=== PATIENT | male | born 1985 | race Two or more races ===

== ENCOUNTER 2016-11-06 17:50 | Emergency (ER) | payer OTHER ==
[2016-11-06 18:07] VITALS: BP 140/96
[2016-11-06] MEDS ORDERED: PREDNISONE 20 MG TABLET PO ONE (19:32)
[2016-11-06] MEDS ORDERED: FAMOTIDINE 20 MG TABLET PO ONE (19:32)
[2016-11-06] MEDS ORDERED: DIPHENHYDRAMINE HCL 50 MG CAPSULE PO ONE (19:32)
--- NOTE | 2016-11-06 19:34 | ER Document Report ---
ED Medical Screen (RME) - General Mode of Arrival: Ambulatory Information source: Patient TRAVEL OUTSIDE OF THE [place] IN LAST 30 DAYS: No - HPI Patient complains to provider of: Abdominal swelling and rash Onset: Other - 1.5 weeks ago Associated Symptoms: Other - see notes above <ABUNDIO HUA - Last Filed: 11/06/16 20:04> <OJSE FLOYD - Last Filed: 11/06/16 20:17> - General Chief Complaint: Abdominal Pain Stated Complaint: ABDOMINAL PAIN Notes: 31 year old male presents to the ED complaining of abdominal swelling and rash which wraps around the lower abdomen and back that started 1.5 weeks ago. Patient reports that the rash is itchy and that he is experiencing increased abdominal pressure. Patient denies wearing anything around his waist or changes in anything that he sleeps on. Patient reports constipation, but denies being on any pain medications recently. Patient has used clobetasol and benadryl to no relief. Patient's primary care provider has prescribed the patient Cipro, but has not started it yet. (ABUNDIO HUA) - Related Data Allergies/Adverse Reactions: No Known Allergies Allergy (Verified 11/06/16 18:04) Home Medications: Current Home Medications Ciprofloxacin HCl [Cipro 500 mg Tablet] 500 mg PO BID 11/06/16 [History] Dextroamphetamine/Amphetamine [Adderall 20 mg Tablet] 1 tab PO DAILY 11/06/16 [ History] Past Medical History - General Information source: Patient Renal/ Medical History: Denies: Hx Peritoneal Dialysis Past Surgical History: Reports: Hx Abdominal Surgery - hernia, Hx Orthopedic Surgery - shoulder, Hx Tonsillectomy - Immunizations Hx Diphtheria, Pertussis, Tetanus Vaccination: Yes <ABUNDIO HUA - Last Filed: 11/06/16 20:04> Review of Systems - Review of Systems Constitutional: No symptoms reported EENT: No symptoms reported Cardiovascular: No symptoms reported Respiratory: No symptoms reported Gastrointestinal: See HPI, Constipation, Other - abdominal swelling Genitourinary: No symptoms reported Male Genitourinary: No symptoms reported Musculoskeletal: No symptoms reported Skin: See HPI, Rash - around lower abdomen and back Hematologic/Lymphatic: No symptoms reported Neurological/Psychological: No symptoms reported -: Yes All other systems reviewed and negative <ABUNDIO HUA - Last Filed: 11/06/16 20:04> Physical Exam - General General appearance: Alert In distress: None - Respiratory Respiratory status: No respiratory distress - Abdominal Inspection: No: Normal - see skin exam below - Extremities General upper extremity: No: Normal inspection - see skin exam below General lower extremity: No: Normal inspection - see skin exam below - Skin Skin Temperature: Warm Skin Moisture: Dry Skin Color: Other - see below Skin irregularity: Rash - Non-dermatomal rash over sides, chest, hands, and leg. <ABUNDIO HUA - Last Filed: 11/06/16 20:04> Course - Laboratory Result Diagrams: 11/06/16 19:47 11/06/16 19:47 <ABUNDIO HUA - Last Filed: 11/06/16 20:04> - Laboratory Result Diagrams: 11/06/16 19:47 11/06/16 19:47 <JOSE FLOYD - Last Filed: 11/06/16 20:17> - Re-evaluation Re-evalutation: 11/06/16 20:16 I personally performed the services described in the documentation, reviewed and edited the documentation which was dictated to the scribe in my presence, and it accurately records my words and actions. (JOSE FLOYD) - Vital Signs Vital signs: Temp Pulse Resp BP Pulse Ox 98.5 F 98 16 140/96 H 98 11/06/16 18:05 11/06/16 18:05 11/06/16 18:05 11/06/16 18:05 11/06/16 18:05 - Laboratory Laboratory results interpreted by me: 11/06/16 19:47 WBC 11.9 H Absolute Eosinophils 0.7 H Scribe Documentation - Scribe Written by Scribe:: Joseph Alberts, 11/06/20162011 acting as scribe for :: Chi <ABUNDIO HUA - Last Filed: 11/06/16 20:04>
[2016-11-06 20:03] LABS: ABSOLUTE BASOPHILS # (AUTO) 0.1 10^3/uL (0.0-0.2); ABSOLUTE EOSINOPHILS # (AUTO) 0.7 10^3/uL (0.0-0.6); ABSOLUTE LYMPHOCYTES (AUTO) 2.6 10^3/uL (0.5-4.7); ABSOLUTE MONOCYTES (AUTO) 0.9 10^3/uL (0.1-1.4); ABSOLUTE NEUT (AUTO) 7.7 10^3/uL (1.7-8.2); BASOPHILS % (AUTO) 0.5 % (0-2); EOSINOPHILS % (AUTO) 5.5 % (0-6); HEMATOCRIT 44.9 % (37.9-51.0); HEMOGLOBIN 14.8 g/dL (13.5-17.0); HGB HCT DIFFERENCE -0.5; LYMPHOCYTES % (AUTO) 21.8 % (13-45); MEAN CORPUSCULAR HEMOGLOBIN 27.6 pg (27.0-33.4); MEAN CORPUSCULAR HGB CONC 32.9 g/dL (32.0-36.0); MEAN CORPUSCULAR VOLUME 84 fl (80-97); MONOCYTES % (AUTO) 7.8 % (3-13); RED BLOOD COUNT 5.36 10^6/uL (4.35-5.55); RED CELL DISTRIBUTION WIDTH 12.8 % (11.5-14.0); SEGMENTED NEUTROPHILS % (AUTO) 64.4 % (42-78); WHITE BLOOD COUNT 11.9 10^3/uL (4.0-10.5)
[2016-11-06 20:24] LABS: ALANINE AMINOTRANSFERASE 38 U/L (21-72); ALKALINE PHOSPHATASE 56 U/L (38-126); ANION GAP 15 (5-19); ASPARTATE AMINO TRANSFERASE 25 U/L (17-59); BILIRUBIN,DIRECT 0.3 mg/dL (0.0-0.4); BILIRUBIN,TOTAL 0.7 mg/dL (0.2-1.3); BLOOD UREA NITROGEN 13 mg/dL (7-20); CALCIUM 10.1 mg/dL (8.4-10.2); CARBON DIOXIDE 26 mmol/L (22-30); CHLORIDE 102 mmol/L (98-107); GLUCOSE 86 mg/dL (75-110); POTASSIUM 4.5 mmol/L (3.6-5.0); SODIUM 142.8 mmol/L (137-145); TOTAL PROTEIN 7.7 g/dL (6.3-8.2)
[2016-11-09 07:44] LABS: LYME DISEASE IGG AND IGM AB <0.91 ISR (0.00-0.90)
== END 2016-11-06 23:20 | disposition left against medical advice (07) ==
LOC: ER 17:50
DX: Z53.9 Procedure and treatment not carried out, unspecified reason (principal); R10.9 Unspecified abdominal pain; R21 Rash and other nonspecific skin eruption; Z79.899 Other long term (current) drug therapy
CPT/HCPCS: 99281; 36415; 85025; 80053; 86618 ×2; 86617 ×2; J7512

== ENCOUNTER 2016-11-08 18:46 | Emergency (ER) | payer OTHER ==
[2016-11-08 20:30] LABS: ABSOLUTE EOSINOPHILS # (AUTO) 0.9 10^3/uL (0.0-0.6); ABSOLUTE LYMPHOCYTES (AUTO) 3.4 10^3/uL (0.5-4.7); ABSOLUTE MONOCYTES (AUTO) 0.6 10^3/uL (0.1-1.4); ABSOLUTE NEUT (AUTO) 4.1 10^3/uL (1.7-8.2); BASOPHILS % (AUTO) 0.5 % (0-2); EOSINOPHILS % (AUTO) 9.7 % (0-6); HEMATOCRIT 42.6 % (37.9-51.0); HEMOGLOBIN 14.1 g/dL (13.5-17.0); HGB HCT DIFFERENCE -0.3; LYMPHOCYTES % (AUTO) 37.7 % (13-45); MEAN CORPUSCULAR HEMOGLOBIN 27.7 pg (27.0-33.4); MEAN CORPUSCULAR HGB CONC 33.2 g/dL (32.0-36.0); MEAN CORPUSCULAR VOLUME 84 fl (80-97); MONOCYTES % (AUTO) 6.8 % (3-13); RED BLOOD COUNT 5.09 10^6/uL (4.35-5.55); RED CELL DISTRIBUTION WIDTH 13.1 % (11.5-14.0); SEGMENTED NEUTROPHILS % (AUTO) 45.3 % (42-78); WHITE BLOOD COUNT 9.1 10^3/uL (4.0-10.5)
--- NOTE | 2016-11-08 20:34 | ER Document Report ---
ED Medical Screen (RME) - General Chief Complaint: Abdominal Pain Stated Complaint: DIFFICULTY BREATHING Notes: 2 weeks ago, patient was having sexual relations with his when something slipped and he felt a pop in the proximal shaft of the penis. Since that time, he has pain in the proximal shaft of the penis and pain with urination. Although he is able to get an erection, he is not able to have an orgasm and achieve ejaculation. He feels that there is a bend in his proximal penile shaft. Soon after this episode, the patient began to notice a rash in the pubic region and it's been going on for the past 2 weeks. It has been itching. [facility] about [facility]. He has also seen the doctor there about the issue with his penis and he is scheduled for an ultrasound of the scrotum on November 16. He has an appointment to see the doctor [facility] the [facility] in the morning. The reason he is here tonight is because he's been feeling tight in the front of his chest and abdomen and when he told his [facility] doctor that, he was advised to come here to get checked. Patient denies any nausea or vomiting. Denies any urinary symptoms except those already reviewed. Denies any fevers. Patient was seen here 2 nights ago and was discharged home to take Pepcid, Benadryl, and prednisone. Patient also just received a shipment of Cipro from the [facility] and has taken only one of those pills. Patient's lungs are clear with good breath sounds bilaterally. Heart sounds are normal. Patient has what appears to be folliculitis of the pubic region and what looks like allergic dermatitis around the waistband, especially over the lateral aspects bilaterally. These areas extend up onto the lower back and some other markings suggest scratch quiroga. Exam of the penis shows no obvious fracture at this time although the patient is tender proximally. I don't see a significant deviation in the line of the penis. TRAVEL OUTSIDE OF THE [place] IN LAST 30 DAYS: No - Related Data Allergies/Adverse Reactions: No Known Allergies Allergy (Verified 11/06/16 18:04) Past Medical History Renal/ Medical History: Denies: Hx Peritoneal Dialysis Past Surgical History: Reports: Hx Abdominal Surgery - hernia, Hx Orthopedic Surgery - shoulder, Hx Tonsillectomy - Immunizations Hx Diphtheria, Pertussis, Tetanus Vaccination: Yes Physical Exam - Vital signs Vitals: Temp Pulse Resp BP Pulse Ox 97.7 F 75 18 131/79 H 98 11/08/16 19:14 11/08/16 19:14 11/08/16 19:14 11/08/16 19:14 11/08/16 19:14 Course - Vital Signs Vital signs: Temp Pulse Resp BP Pulse Ox 97.7 F 75 18 131/79 H 98 11/08/16 19:14 11/08/16 19:14 11/08/16 19:14 11/08/16 19:14 11/08/16 19:14 - Laboratory Result Diagrams: 11/08/16 20:10 11/08/16 20:10 Laboratory results interpreted by me: 11/08/16 11/08/16 20:10 20:10 Eosinophils % 9.7 H Absolute Eosinophils 0.9 H Urine Ascorbic Acid 20 H
[2016-11-08 20:51] LABS: APPEARANCE,URINE CLEAR; BILIRUBIN,URINE NEGATIVE (NEGATIVE); GLUCOSE, URINE NEGATIVE (NEGATIVE); KETONES,URINE NEGATIVE (NEGATIVE); LEUKOCYTE ESTERASE,URINE NEGATIVE (NEGATIVE); NITRITE,URINE NEGATIVE (NEGATIVE); PROTEIN,URINE NEGATIVE (NEGATIVE); URINE SPECIFIC GRAVITY 1.019; UROBILINOGEN,URINE NEGATIVE mg/dL (<2.0)
[2016-11-08 20:55] LABS: ALANINE AMINOTRANSFERASE 34 U/L (21-72); ALBUMIN 4.4 g/dL (3.5-5.0); ALKALINE PHOSPHATASE 49 U/L (38-126); ANION GAP 13 (5-19); ASPARTATE AMINO TRANSFERASE 18 U/L (17-59); BILIRUBIN,DIRECT 0.2 mg/dL (0.0-0.4); BILIRUBIN,TOTAL 0.4 mg/dL (0.2-1.3); BLOOD UREA NITROGEN 17 mg/dL (7-20); CALCIUM 9.7 mg/dL (8.4-10.2); CARBON DIOXIDE 27 mmol/L (22-30); CHLORIDE 103 mmol/L (98-107); GLUCOSE 80 mg/dL (75-110); LIPASE 104.7 U/L (23-300); POTASSIUM 4.3 mmol/L (3.6-5.0); SODIUM 143.3 mmol/L (137-145); TOTAL PROTEIN 6.9 g/dL (6.3-8.2)
[2016-11-08 21:04] LABS: CREATINE KINASE MB 0.42 ng/mL (<4.55)
[2016-11-08 21:07] LABS: C-REACTIVE PROTEIN < 5.0 mg/L (<10.0)
[2016-11-08 21:08] LABS: TROPONIN I < 0.012 ng/mL
[2016-11-08 21:19] LABS: ERYTHROCYTE SEDIMENTATION RATE 6 mm/hr (0-15)
[2016-11-08] MEDS ORDERED: DIPHENHYDRAMINE HCL 50 MG/ML VIAL IV ONE (22:00)
[2016-11-08] MEDS ORDERED: FAMOTIDINE INJ/PF 20 MG/2 ML SDV IV ONE (22:00)
[2016-11-08] MEDS ORDERED: NORMAL SALINE 1000 ML 1,000 ML IV PRN (22:00)
[2016-11-08] MEDS ORDERED: METHYLPREDNISOLONE INJ 125 MG/2 ML SDV IV ONE (22:00)
--- NOTE | 2016-11-08 22:01 | ER Document Report ---
ED General - General Chief Complaint: Abdominal Pain Stated Complaint: DIFFICULTY BREATHING Time seen by provider: 22:01 Mode of Arrival: Ambulatory Information source: Patient TRAVEL OUTSIDE OF THE [place] IN LAST 30 DAYS: No - HPI Patient complains to provider of: tightness in chest and abdomen, diffuse rash Onset: Other - 2 weeks Onset/Duration: Persistent Quality of pain: Achy, Cramping Severity: Mild Pain Level: 1 Exacerbated by: Denies Relieved by: Denies Similar symptoms previously: No Recently seen / treated by doctor: Yes Notes: Patient is a 31-year-old male who presents to the emergency room for complaints of diffuse erythematous raised rash that's been going on for the past 2 weeks, reports over the past few days he's developed tightness in his chest and abdomen , denies any abdominal pain, no fever or chills, no difficulty breathing, states he saw his primary care provider who placed him on Cipro symptoms which have not improved, and he is concerned because he is now develop chest tightness and abdominal tightness, states he had a normal bowel movement today, no urinary symptoms - Related Data Allergies/Adverse Reactions: No Known Allergies Allergy (Verified 11/06/16 18:04) Past Medical History - General Information source: Patient - Social History Smoking Status: Never Smoker Family History: Reviewed & Not Pertinent, Hyperlipidemia Patient has suicidal ideation: No Patient has homicidal ideation: No Renal/ Medical History: Denies: Hx Peritoneal Dialysis Past Surgical History: Reports: Hx Abdominal Surgery - hernia, Hx Orthopedic Surgery - shoulder, Hx Tonsillectomy - Immunizations Hx Diphtheria, Pertussis, Tetanus Vaccination: Yes Review of Systems - Review of Systems Constitutional: No symptoms reported EENT: No symptoms reported Cardiovascular: No symptoms reported Respiratory: Other - Chest tightness Gastrointestinal: See HPI Genitourinary: No symptoms reported Male Genitourinary: No symptoms reported Musculoskeletal: No symptoms reported Skin: See HPI Hematologic/Lymphatic: No symptoms reported Neurological/Psychological: No symptoms reported Physical Exam - Vital signs Vitals: Temp Pulse Resp BP Pulse Ox 97.7 F 75 18 131/79 H 98 11/08/16 19:14 11/08/16 19:14 11/08/16 19:14 11/08/16 19:14 11/08/16 19:14 Interpretation: Normal - General General appearance: Appears well, Alert - HEENT Head: Normocephalic, Atraumatic Eyes: Normal Pupils: PERRL - Respiratory Respiratory status: No respiratory distress Chest status: Nontender Breath sounds: Normal Chest palpation: Normal - Cardiovascular Rhythm: Regular Heart sounds: Normal auscultation Murmur: No - Abdominal Inspection: Normal Distension: No distension Bowel sounds: Normal Tenderness: Nontender Organomegaly: No organomegaly - Back Back: Normal, Nontender - Extremities General upper extremity: Normal inspection, Nontender, Normal color, Normal ROM , Normal temperature General lower extremity: Normal inspection, Nontender, Normal color, Normal ROM , Normal temperature, Normal weight bearing. No: Alba's sign - Neurological Neuro grossly intact: Yes Cognition: Normal Orientation: AAOx4 Adriana Coma Scale Eye Opening: Spontaneous Paterson Coma Scale Verbal: Oriented Paterson Coma Scale Motor: Obeys Commands Paterson Coma Scale Total: 15 Speech: Normal Motor strength normal: LUE, RUE, LLE, RLE Sensory: Normal - Psychological Associated symptoms: Normal affect, Normal mood - Skin Skin Temperature: Warm Skin Moisture: Dry Skin Color: Normal Location of irregularity: Generalized Character of irregularity: Erythematous, Urticarial Irregularity with: Induration Notes: Patient with diffuse erythematous indurated urticarial rash, with areas of excoriation and central scabbing, no drainage Course - Re-evaluation Re-evalutation: 11/09/16 00:44 Patient's rash has been going on for 2 weeks, he reports that he had a vesicular component in the beginning, at time of my evaluation he has erythematous indurated areas with a small central scabbing, he was started on acyclovir for the possibility of parasellar rash, as well as medications for symptomatic treatment, advised to follow-up with his primary care provider or return if symptoms worsen, lab and imaging findings were discussed with patient at bedside which are unremarkable - Vital Signs Vital signs: Temp Pulse Resp BP Pulse Ox 98.1 F 61 20 115/62 98 11/09/16 00:25 11/09/16 00:25 11/09/16 00:25 11/09/16 00:25 11/09/16 00:25 - Laboratory Result Diagrams: 11/08/16 20:10 11/08/16 20:10 Laboratory results interpreted by me: 11/08/16 11/08/16 20:10 20:10 Eosinophils % 9.7 H Absolute Eosinophils 0.9 H Urine Ascorbic Acid 20 H - Diagnostic Test Radiology reviewed: Image reviewed, Reports reviewed Discharge - Discharge Clinical Impression: Chicken pox Qualifiers: Varicella complications: without complication Qualified Code(s): B01.9 - Varicella without complication Condition: Stable Disposition: HOME, SELF-CARE Instructions: Abdominal Pain ([facility]), Chicken Pox ([facility]) Additional Instructions: Follow up with your primary care provider in one to 2 days. Return to the emergency room immediately if symptoms worsen or any additional concerns. Prescriptions: Acyclovir 800 mg PO QID #20 Diphenhydramine HCl [Benadryl 25 Mg Capsule] 25 mg PO Q6 #30 capsule Famotidine [Pepcid 20 mg Tablet] 20 mg PO BID #12 tablet Prednisone 40 mg PO DAILY #8 tablet
[2016-11-08] MEDS ORDERED: ACYCLOVIR 800 MG TABLET PO ONE (23:45)
[2016-11-09] MEDS ORDERED: ACYCLOVIR 800 MG TABLET ONE (00:16)
[2016-11-09 00:30] VITALS: BP 115/62
--- NOTE | 2016-11-09 22:27 | EKG REPORT ---
SEVERITY:- NORMAL ECG - SINUS RHYTHM : Confirmed by: Jacklyn Vazquez MD 09-Nov-2016 22:27:05
== END 2016-11-09 00:25 | disposition home or self-care (01) ==
LOC: ER 18:46
DX: B01.9 Varicella without complication (principal); R19.8 Other specified symptoms and signs involving the digestive system and abdomen; R07.89 Other chest pain
CPT/HCPCS: 93005; 99285; 96374; 96375; 36415; 82553; 83690; 85025; 85652; 86140; 80053; 81001; 84484; 71020; 74177; 93010; J1200; J2930; S0028